=== PATIENT | male | born 1950 | race Caucasian/White ===

== ENCOUNTER → 2016-05-05 | Outpatient (CLI) | payer OTHER | LOC: RAD 07:39 | PROVIDERS: ATTEND Internal Medicine Gastroenterology | DX: R13.10 Dysphagia, unspecified (principal); K22.5 Diverticulum of esophagus, acquired; K21.9 Gastro-esophageal reflux disease without esophagitis; K44.9 Diaphragmatic hernia without obstruction or gangrene | CPT/HCPCS: 74220 ==

== ENCOUNTER 2018-12-13 09:13 | Emergency (ER) | payer MEDICARE, OTHER ==
[2018-12-13 09:19] VITALS: BP 139/116
[2018-12-13] MEDS ORDERED: DIPH/PERTUSS(ACELL)/TETANUS VAC/PF 0.5 ML SYR (>=10YO) IM ONE (09:38)
--- NOTE | 2018-12-13 09:47 | ER Document Report ---
ED Medical Screen (RME) - General Chief Complaint: Laceration Stated Complaint: HAND LACERATION Time Seen by Provider: 12/13/18 09:38 Primary Care Provider: ZHANG CHAUDHARI MD [Primary Care Provider] - Follow up as needed Mode of Arrival: Ambulatory Information source: Patient Notes: Patient presents emergency department chief complaint of laceration to his left third digit. Patient reports he was using electric hedge cutter when he cut his finger. Exam: Laceration noted to distal aspect of left third digit, this goes through the nail. Mild active bleeding noted. Cap refill less than 3 seconds. I have greeted and performed a rapid initial assessment of this patient. A comprehensive ED assessment and evaluation of the patient, analysis of test results and completion of the medical decision making process will be conducted by additional ED providers. I have specifically instructed the patient or family members with the patient to immediately return to any nursing staff should anything change in the patient's condition or with their chief complaint. This medical record was dictated with voice recognizing software. There may be grammatical, syntax errors that are unintended. TRAVEL OUTSIDE OF THE [place] IN LAST 30 DAYS: No - Related Data Allergies/Adverse Reactions: No Known Allergies Allergy (Verified 05/03/14 11:18) Past Medical History - Past Medical History Cardiac Medical History: Reports: Hx Hypercholesterolemia, Hx Hypertension Neurological Medical History: Denies: Hx Cerebrovascular Accident, Hx Seizures Renal/ Medical History: Reports: Hx Benign Prostatic Hyperplasia - Immunizations Hx Diphtheria, Pertussis, Tetanus Vaccination: Yes Physical Exam - Vital signs Vitals: Temp Pulse Resp BP Pulse Ox 98.1 F 104 H 20 139/116 H 97 12/13/18 09:17 12/13/18 09:17 12/13/18 09:17 12/13/18 09:17 12/13/18 09:17 Course - Vital Signs Vital signs: Temp Pulse Resp BP Pulse Ox 98.1 F 104 H 20 139/116 H 97 12/13/18 09:17 12/13/18 09:17 12/13/18 09:17 12/13/18 09:17 12/13/18 09:17 Doctor's Discharge - Discharge Referrals: ZHANG CHAUDHARI MD [Primary Care Provider] - Follow up as needed
[2018-12-13] MEDS ORDERED: LIDOCAINE 1% INJ-PF (10 MG/ML) 30 ML SDV INJ ONE (10:20)
--- NOTE | 2018-12-13 10:21 | ER Document Report ---
ED Wound - General Chief Complaint: Laceration Stated Complaint: HAND LACERATION Time Seen by Provider: 12/13/18 09:38 Primary Care Provider: ZHANG CHAUDHARI MD [ACTIVE STAFF] - Follow up as needed Mode of Arrival: Ambulatory Notes: Generally healthy 68-year-old male presents emergency department for a laceration to his left middle finger. Patient states that he was trimming his hedges this morning when the electric breast trimmer inadvertently caught his DIP of the left middle finger. Patient states that it was actively bleeding but is mostly controlled now. Patient states he is able to move his finger and has sensation in the finger. Patient's last tetanus unknown. TRAVEL OUTSIDE OF THE [place] IN LAST 30 DAYS: No - Related Data Allergies/Adverse Reactions: No Known Allergies Allergy (Verified 05/03/14 11:18) Past Medical History - General Information source: Patient - Social History Smoking Status: Unknown if Ever Smoked Family History: None, CVA - Past Medical History Cardiac Medical History: Reports: Hx Hypercholesterolemia, Hx Hypertension Neurological Medical History: Denies: Hx Cerebrovascular Accident, Hx Seizures Renal/ Medical History: Reports: Hx Benign Prostatic Hyperplasia - Immunizations Hx Diphtheria, Pertussis, Tetanus Vaccination: Yes Review of Systems - Review of Systems Constitutional: No symptoms reported EENT: No symptoms reported Cardiovascular: No symptoms reported Respiratory: No symptoms reported Gastrointestinal: No symptoms reported Genitourinary: No symptoms reported Male Genitourinary: No symptoms reported Musculoskeletal: See HPI Skin: See HPI Hematologic/Lymphatic: No symptoms reported Neurological/Psychological: No symptoms reported Physical Exam - Vital signs Vitals: Temp Pulse Resp BP Pulse Ox 98.1 F 104 H 20 139/116 H 97 12/13/18 09:17 12/13/18 09:17 12/13/18 09:17 12/13/18 09:17 12/13/18 09:17 - Notes Notes: PHYSICAL EXAMINATION: Reviewed vital signs and charting by RN GENERAL: Alert, interacts well. No acute distress. HEAD: Normocephalic, atraumatic. EYES: Pupils equal and round. Extraocular movements intact. ENT: Oral mucosa moist, tongue midline. NECK: Full range of motion. Trachea midline. EXTREMITIES: Moves all 4 extremities spontaneously. No edema, No cyanosis. PSYCH: Normal affect, normal mood. SKIN: Warm, dry, normal turgor. Laceration of the left middle finger distal aspect of the DIP that goes through the nail. Not actively bleeding, brisk cap refill. Flexor and extensor tendons intact to active range of motion and against resistance, normal distal neurovascular exam. Course - Re-evaluation Re-evalutation: 12/13/18 10:20 Generally well-appearing, patient will receive tetanus booster, x-ray pending, plan for primary closure. 12/13/18 11:45 X-ray was negative for any fracture or foreign body. Patient received tetanus booster. Wound was closed using sterile technique, a digital block of the left middle finger was performed using lidocaine 1% without epinephrine. 4-0 sutures were used and a 5-0 Ethilon was used to split the nail in place. Patient tolerated the procedure well. Instructions given return precautions given. Patient is ready for discharge. - Vital Signs Vital signs: Temp Pulse Resp BP Pulse Ox 98.1 F 104 H 20 139/116 H 97 12/13/18 09:17 12/13/18 09:17 12/13/18 09:17 12/13/18 09:17 12/13/18 09:17 Procedures - Laceration/Wound Repair Left Distal Finger 3rd digit Wound length (cm): 3 Wound's Depth, Shape: Superficial, Irregular, Nail-avulsed Laceration pre-procedure: Sterile PPE donned Anesthetic type: 1% Lidocaine Wound explored: Clean Wound Debrided: Minimal Wound Repaired With: Sutures Suture Size/Type: 5:0, 4:0, Ethilon Layer Closure?: No Post-procedure wound care: Sterile dressing applied, Splint applied Post-procedure NV exam normal: Yes Complications: No Discharge - Discharge Clinical Impression: Laceration Condition: Good Disposition: HOME, SELF-CARE Instructions: Antibiotic Ointment Protection ([facility]), Laceration Care ([facility]), Soap Cleansing ([facility]), Tetanus Immunization Given ([facility]) Additional Instructions: Please return to your primary doctor, the ED, or an urgent care in 7 days for suture removal. Return immediately if you develop spreading redness around the wound, pus from the wound, worsening pain, or a fever of >101. Keep the area clean and dry. Wash gently with soap and water twice daily and cover with antibiotic ointment. Referrals: ZHANG CHAUDHARI MD [ACTIVE STAFF] - Follow up as needed
--- NOTE | 2018-12-13 10:36 | RADIOLOGY REPORT (SQ) ---
EXAM DESCRIPTION: FINGER LEFT COMPLETED DATE/TIME: 12/13/2018 10:25 am REASON FOR STUDY: Laceration COMPARISON: None. NUMBER OF VIEWS: Three views. TECHNIQUE: AP, lateral, and oblique images acquired of the left third finger. LIMITATIONS: None. FINDINGS: MINERALIZATION: Normal. BONES: No acute fracture or dislocation. No worrisome bone lesions. SOFT TISSUES: Bandage material overlies 3rd digit. No radiopaque foreign body. OTHER: No other significant finding. IMPRESSION: No evidence of acute bony abnormality. No radiopaque foreign body. TECHNICAL DOCUMENTATION: JOB ID: [id number]- All Rights Reserved Reading location - IP/workstation name: [email or web address]
== END 2018-12-13 12:15 | disposition home or self-care (01) ==
LOC: ER 09:13
DX: S61.213A Laceration without foreign body of left middle finger without damage to nail, initial encounter (principal); W29.3XXA Contact with powered garden and outdoor hand tools and machinery, initial encounter; Y93.H2 Activity, gardening and landscaping; Z23 Encounter for immunization; E78.00 Pure hypercholesterolemia, unspecified; I10 Essential (primary) hypertension
CPT/HCPCS: 73140; 90715; 12002; J3490

== ENCOUNTER → 2019-09-01 | Outpatient (CLI) | payer MEDICARE, OTHER ==
--- NOTE | 2019-09-01 18:08 | DRAGON STRESS TEST REPORT ---
EXERCISE TREADMILL TEST. DATE OF PROCEDURE: 09/01/2019 INDICATION: Coronary artery disease Coronary risk factors: Coronary artery disease, hypertension, hyperlipidemia. Resting EKG: Sinus rhythm, no baseline ST segment changes. Stress EKG: No significant changes noted with with exercise treadmill. Reason for termination: Dyspnea and fatigue. PROCEDURE REPORT: Baseline heart rate: 75 beats per minute with blood pressure of 129/86. Patient had no significant complaints at baseline. Patient was exercised on a standard Power protocol. Patient exercised for total of 8 minutes and 21-second. Exercise was stopped because of fatigue and shortness of breath. Patient denied any chest arm or neck discomfort during the exercise, at peak exercise or in recovery. If automatic blood pressure recorded and if felt not accurate manual blood pressure then were recorded at appropriate intervals. Peak heart rate: 131 bpm, 86 of predicted maximum. Peak blood pressure: 149/72 mmHg. Double product: 16.6 kcal Exercise EKG: Showed some baseline artifact during exercise but no significant ST segment changes noted on EKG is obtained in early recovery. CONCLUSIONS: Clinically negative stress test with adequate exertional level but suboptimal double product. Blood pressure did not increase adequately with exercise. May indicate LV systolic dysfunction, valvular stenosis or just technical error. Significant artifact is noted during exercise but immediate post exercise did not show any significant ST segment changes RECOMMENDATIONS: 2D echocardiogram, further evaluation with stress test with imaging modality such as stress echo or nuclear stress test. Clinical correlation is requested. Aggressive risk factor modification, medical therapy. Consider cardiology consultation if clinically indicated. Darwin López M.D., [employer] Coordinator [employer], Board certified in cardiovascular diseases, Nuclear cardiology, Echocardiography Cardiac CT and cardiac MRI Ph. [phone] Ph. [phone] [facility]
== END ==
LOC: SP 09:13
PROVIDERS: ATTEND Physician Assistant
DX: I25.10 Atherosclerotic heart disease of native coronary artery without angina pectoris (principal); I10 Essential (primary) hypertension; E78.5 Hyperlipidemia, unspecified
CPT/HCPCS: 93017